=== PATIENT | male | born 1975 | race Caucasian/White ===

== ENCOUNTER 2019-12-05 06:47 | Day surgery (SDC) | payer MEDICAID, SELFPAY ==
[~2019-12-05] VITALS: Ht 190.5 cm; Wt 90.7 kg
[2019-12-05] MEDS ORDERED: MIDAZOLAM 2 MG/2 ML VIAL ONE (07:58)
[2019-12-05] MEDS ORDERED: diphenhydrAMINE 50 MG/ML VIAL ONE (07:59)
[2019-12-05] MEDS ORDERED: LIDOCAINE VISCOUS 2% 20 ML UDC ONE (07:59)
[2019-12-05] MEDS ORDERED: fentaNYL 0.05 MG/ML VIAL ONE (07:59)
[2019-12-05] MEDS ORDERED: MIDAZOLAM 2 MG/2 ML VIAL IVP ONE (08:40)
[2019-12-05] MEDS ORDERED: fentaNYL 0.05 MG/ML VIAL IVP ONE (08:40)
== END 2019-12-05 10:25 | disposition home or self-care (01) ==
LOC: MDS 06:47 → MMU 06:49 → MDS 10:25
PROVIDERS: ATTEND Internal Medicine Gastroenterology
DX: K74.3 Primary biliary cirrhosis (principal); K74.60 Unspecified cirrhosis of liver; I85.10 Secondary esophageal varices without bleeding; R18.8 Other ascites; Z79.899 Other long term (current) drug therapy; Z11.59 Encounter for screening for other viral diseases
CPT/HCPCS: 43239; 76705; J2250; J3010; Q0092; U0003; 88305; 88312; 88313; J1200

== ENCOUNTER 2020-01-09 06:50 | Day surgery (SDC) | payer MEDICAID, SELFPAY ==
[~2020-01-09] VITALS: Ht 190.5 cm; Wt 49.9 kg
[2020-01-09] MEDS ORDERED: fentaNYL citrate 0.05 MG/ML VIAL ONE (08:44)
[2020-01-09] MEDS ORDERED: MIDAZOLAM 2 MG/2 ML VIAL ONE (08:44)
[2020-01-09] MEDS ORDERED: LIDOCAINE 2% 100 MG/5 ML UJET TP ONE ×2 (08:44→14:10)
[2020-01-09] MEDS ORDERED: MIDAZOLAM 2 MG/2 ML VIAL IVP ONE (14:10)
[2020-01-09] MEDS ORDERED: fentaNYL citrate 0.05 MG/ML VIAL IVP ONE (14:10)
== END 2020-01-09 09:45 | disposition home or self-care (01) ==
LOC: MDS 06:50 → MFCC 06:51 → MDS 09:45
PROVIDERS: ATTEND Internal Medicine Gastroenterology
DX: R10.84 Generalized abdominal pain (principal); K74.60 Unspecified cirrhosis of liver; I85.00 Esophageal varices without bleeding; B18.2 Chronic viral hepatitis C; B96.81 Helicobacter pylori [H. pylori] as the cause of diseases classified elsewhere; Z79.899 Other long term (current) drug therapy; Z11.59 Encounter for screening for other viral diseases; F17.210 Nicotine dependence, cigarettes, uncomplicated
CPT/HCPCS: 45380; J2250; J3010; U0003